=== PATIENT | female | born 1985 | race Caucasian/White ===

== ENCOUNTER 2016-06-24 07:23 | Day surgery (SDC) | payer OTHER ==
[2016-06-24] VITALS (8 sets, daily range): BP systolic 128–140; BP diastolic 68–79; PULSE 54–67; RESP 13–18; O2SAT 92–98
[~2016-06-24] VITALS: Ht 175.3 cm; Wt 133.9 kg
--- NOTE | 2016-06-24 07:01 | PCM.HPANE ---
Patient Data Surgeon Admitting Provider: Attending Provider:Wade Fried DPM Primary Care Physician:Other,Physician Other Provider:Kvng Gill Anesthesia Reason for Visit Left Ankle Syndesmosis Disruption Ht/WT & BMI Height (Feet): 5 Height (Inches): 9 Weight (Kilograms): 132.903 Body Mass Index 43.00 Allergies Coded Allergies: tramadol (Verified Allergy, Severe, Hives, 06/21/16) Past Anesthesia History Anesthesia History: Denies:: Anesthesia Reactions, Malignant Hyperthermia Diabetes History Hx Diabetes?: No MRSA MRSA: No Medications Reported Medications Ofloxacin 5 Ml Drops1-2 Drop AFFECT_EYE QID 06/21/16 Cholecalciferol (Vitamin D3) (Vitamin D)1,000 Unit Capsule2,000 Unit PO DAILY # 1 BOTTLE Ref 0 12/22/15 Georges Perox Micro/Skin Clnsr#24 (Acne Clearing System)295 Ml Combo..vpb753 Ml TP DAILY 12/22/15 Clindamycin Phosphate (Clindamycin Phosphate Topical)60 Ml Lotion1 Applic TP BID #60 ML Ref 0 1% 12/22/15 [Mirena Iud] No Conflict Check Intrauteri Daily 20MCG/24H 12/22/15 Fluticasone Propionate (Flonase Allergy Relief)50 Mcg/Actuation [place].susp9.9 Ml NS DAILY 12/22/15 Multivitamin (Multivitamins)1 Each Capsule1 Each PO DAILY 09/12/15 Montelukast (Singulair)10 Mg Neflit47 Mg PO HS Ref 0 09/12/15 Sertraline HCl (Zoloft)20 Mg/1 Ml Oral.conc50 Mg PO DAILY #1 BOTTLE Ref 0 09/12/15 Discontinued Reported Medications Amoxicillin 875 Mg Wcgkid606 Mg PO BID Ref 0 06/21/16 Hydrocodone-Acetaminophen 5-325 mg 1 Each Tablet1 Tablet PO Q4H PRN For Pain Ref 0 12/22/15 Naproxen Sodium (Aleve)220 Mg Oyhjuwz249 Mg PO BID 12/22/15 History History of ENT Problems?: Yes HEENT History: Positive for:: Hearing Problem (HX RUPT EARDRUM) Sinus Problem (SEASONAL ALLERGIES HX MAXILLARY/ETHMOIID SINUSITIS) Denies:: Cataracts Dysphagia Glaucoma (HX CONJUNCTIVITIS 05/2016) Hx of Heart Problems?: Yes Cardiovascular History: Positive for:: Irregular Heartbeat (HX BRADYCARDIA) Denies:: Heart Murmur Hypertension Hx of Respiratory Problem?: Yes Respiratory History: Positive for:: Asthma Pneumonia (X2) Denies:: Use of C-PAP Machine (SNORES) Hx Neurologic Problems?: Yes Neurological History: Positive for:: Headaches Hx of GI Problems?: Yes Gastrointestinal History: Positive for:: Heartburn Hx of Problems?: No Female Hx: Denies:: Currently Skin History: Denies:: History Skin Disorders? Pressure Ulcers Hx Musculoskeletal Problems?: Yes Musculoskeletal History: Positive for:: Musculoskeletal Trauma (S/P LT ANKLE RELOCATION/ORIF,REMOVAL OF HARDWARE) Hx of Psycho/Social Problems?: Yes Psycho Social History: Positive for:: Anxiety Hx Depression Hx Surgeries?: Yes (ORIF/RELOCATION LT ANKLE,LT ANKLE HARDWARE REMOVAL) Hx Any Other Health Problems?: Yes Other History: Positive for:: Hospitalization (LT ANKLE FX) Denies:: Cancer Endocrine Disease Thyroid Disease History Blood Transfusions: Denies:: Blood Transfuse Reaction Blood Transfusions Hx Diabetes: No Hx Alcohol Use: YesHx Substance Use: Yes (MARIJUANA) Smoking Status: Current Some Day Smoker Have You Smoked inLast 12 mo: YesApprox How Many Cigarettes/day: "OCCASIONALLY " Stop/Bang S-Snoring: Do You Snore Loudly: Yes T-Tired: feel tired, fatigued: No O-Obsered: Observed not breath: No P-Blood Pressure: treated: No B- Body Mass Index > 35 kg/m2: Yes A- Age over 50: No N- Neck Large Circumference: Yes G- Gender Male: No YENI Total Score: 3 Risk Assessment Category Category 1A: Patient has history of documented sleep apnea, and HAS NOT received any narcotic, sedative or anesthesia administration during this stay. Category 1B: Patient has history of documented sleep apnea, and HAS received any narcotic , sedative or anesthesia administration during this stay Category 2: Patient has SUSPECTED Obstructive Sleep Apnea, and HAS received any narcotic , sedative or anesthesia administration during this stay. Category 3: Patient has SUSPECTED Obstructive Sleep Apnea and HAS NOT received narcotic, sedative or anesthesia administration during this stay. Category 4: Outpatient in Procedural Areas with known sleep apnea or who screen positive for High Risk via the STOP/BANG questionnaire. Exam Exam General Appearance: Alert, Oriented X3, Cooperative HEENT/AIRWAY: MP 2, Neck Movement (from), Mouth Opening (wnl) Heart: Exam Unremarkable Plan Impression Patient chart reviewed, patient interviewed and anesthestic plan with risks, benefits, and alternatives discussed, and informed consent obtained. NPO Status: MN ASA Physical Status: ASA3 Severe Disease Anesthetic Plan: GA Bene/Risks/Altern/Consents: Yes HP Complete Prior to Induction: Yes Other Scope patch requested and provided. Patient gets post op N/V every time. Offered SAB and patient requests GA. Isak Horvath MD Jun 24, 2016 07:01
[~2016-06-24 07:23] MED LIST: AMOX875T2 PO; CHOL100045 PO; CLIN60LO2 TP; CeFAZolin Inj 3 GM in IV Premix 1 EACH IV SCH; FLUT9.9S NS; MIRENA IUD INTRAUTERI; MONT10TA20 PO; MULT1CAP33 PO; OFLO5DRO9 AFFECT_EYE; SERT20OR PO; [UNRECOGNIZED DRUG - CODE] TP
[2016-06-24] MEDS ORDERED: Dexamethasone 4 mg/mL Inj ONE (07:24)
[2016-06-24] MEDS ORDERED: Ondansetron 2 mg/mL 2 mL Inj ONE (07:24)
[2016-06-24] MEDS ORDERED: Glycopyrrolate 0.2 MG/ML 1mL Inj ONE (07:24)
[2016-06-24] MEDS ORDERED: fentaNYL-PF 50 mCg/mL 2 mL Inj ONE (07:24)
[2016-06-24] MEDS ORDERED: Propofol 10,000 mCg/mL 20 mL Inj ONE (07:24)
[2016-06-24] MEDS: Lactated Ringer's 1,000 ML IV SCH ×2 (07:30→10:40)
[2016-06-24] MEDS ORDERED: fentaNYL-PF 50 mCg/mL 2 mL Inj IVPUSH PRN ×2 (08:15→10:35)
[2016-06-24] MEDS ORDERED: LORazepam 1 mg Tablet PO PRN (08:15)
[2016-06-24] MEDS ORDERED: CeFAZolin Inj 2 GM in IV Premix 1 EACH IV ONE (09:00)
[2016-06-24] MEDS ORDERED: Lactated Ringer's 1,000 ML IV SCH (10:33)
[2016-06-24] MEDS ORDERED: Lactated Ringer's 500 ML IV PRN (10:33)
[2016-06-24] MEDS ORDERED: EPHEDrine Sulfate 50 mg/mL Inj IVPUSH PRN (10:35)
[2016-06-24] MEDS ORDERED: Phenylephrine 10,000 mCg/mL Inj IVPUSH PRN (10:35)
[2016-06-24] MEDS ORDERED: EPHEDrine Sulfate 50 mg/mL Inj IM PRN (10:35)
[2016-06-24] MEDS ORDERED: Atropine 0.4 mg/mL Inj IVPUSH PRN (10:35)
[2016-06-24] MEDS ORDERED: HYDROmorphone 1 mg/mL Inj IVPUSH PRN (10:35)
[2016-06-24] MEDS ORDERED: hydrOXYzine Inj 50 MG/1 mL SDV IM PRN (10:35)
[2016-06-24] MEDS ORDERED: Labetalol 5 mg/mL 4 mL Inj IV PRN (10:35)
[2016-06-24] MEDS ORDERED: Ondansetron 2 mg/mL 2 mL Inj IVPUSH PRN (10:35)
[2016-06-24] MEDS ORDERED: Dexamethasone 4 mg/mL Inj IVPUSH PRN (10:35)
[2016-06-24] MEDS ORDERED: hydrALAZINE 20 mg/mL Inj IVPUSH PRN (10:35)
[2016-06-24] MEDS ORDERED: Bupivacaine-MPF 0.5% W/EPI 30 mL Inj INFILTRATE ONE (10:39)
--- NOTE | 2016-06-24 13:42 | PCM.ANEP1 ---
Post Anesthesia Phase 1 PACU Phase 1 Assessment Vital Signs Vital Signs Date Time Temp Pulse Resp B/P Pulse Ox O2 Delivery O2 Flow Rate FiO2 06/24/16 08:23 36.0 55 18 139/76 95 Room Air Anesthetic Administered: GA Level of Alertness: Awake, talking WELCH's with Equal Strength: Yes Pain: Yes Nausea or Vomiting: No Oxygen Delivery: Room Air Lungs: Normal Air Movement Isak Horvath MD Jun 24, 2016 13:42
[2016-06-24] MEDS ORDERED: Acetaminophen IV 1,000 MG in IV Premix 1 EACH IV ONE (13:45)
[2016-06-24] MEDS ORDERED: oxyCODONE-Acetamin 5-325 mg Tablet PO PRN (13:45)
--- NOTE | 2016-06-24 13:55 | PCM.PODPO ---
Podiatry Operative Report Date of Service: Jun 24, 2016 Date of Service Jun 24, 2016 Pre Operative Diagnosis Syndesmosis disruption left ankle Retained hardware left ankle Post Operative Diagnosis Same as preoperative diagnoses Procedure Removal hardware left ankle Left ankle arthroscopy with extensive soft tissue debridement Open reduction internal fixation of the left ankle syndesmosis Surgeon Surgeon: Wade Fried DPM Assistants: None Indication for Procedure Severe pain left ankle with chronic syndesmosis disruption Findings Severe fibrous scar tissue within the medial gutter of the left ankle preventing left ankle anatomic reduction. Severe soft tissue disease of the left ankle. Details of Procedure Patient was identified in the preoperative holding area and preoperative coronary disease and allergies were identified and thoroughly discussed. The patient was transported into the operating room and placed on the operating room table in the normal supine position. The patient was then prepped and draped in the normal aseptic technique. Attention was first paid to the anterior medial aspect of the left ankle. A spinal needle was inserted medial to the tibialis anterior tendon taking care to avoid local neurovascular structures. The ankle joint was then infiltrated with a large amount of normal saline. A stab incision was then made with a #11 blade and a hemostat was inserted to access the ankle joint. An obturator and cannula was then inserted through the medial access portal. The camera was then inserted to the medial ankle and the ankle joint was identified through direct visualization on arthroscopy. A medial portal was accessed in a similar fashion using direct visualization. Inspection of the left ankle joint revealed a large amount of synovitis and soft tissue disease within the articular surface of the ankle joint as well as within the lateral and medial gutter. A 2.5 mm aggressive cutting shaver was then utilized to resect as much soft tissue disease as possible from the lateral gutter, intra-articular ankle surface taking care not to damage any articular cartilage and from within the medial gutter as well. During the arthroscopy was noted that there was a large buildup of fibrous scar tissue within the anterior inferior portion of the medial ankle gutter which was not easily removable with a 2.5 mm shaver tool. The ankle joint was copiously flushed with large amounts of normal saline. Attention was then paid to the lateral aspect of the left ankle he linear incision approximately 5 cm in length was made over the posterior lateral aspect of the left distal fibula. Most initially her skin no subcutaneous or lesser structures were identified and retracted out of the surgical field. Sharp dissection was carried straight down to bone with a fresh #15 blade. Deep tissue was reflected both anteriorly and posteriorly off the distal fibula to reveal the entirety of the distal fibula. The posteriorly placed tight rope was identified and the lateral button was excised sharply with a #15 blade. A stab incision was made overlying the medial malleolus and the location of the lateral suture button which was then also sharply removed all associated suture material was also removed with the tight rope button. A muñoz periosteal elevator was then utilized to dissect proximally through the lateral incision to identify the distal aspect of the one third tubular plate. Distal screws were removed utilizing a 3.5 mm Synthes screwdriver. A superior incision was then made approximately 4 cm in length and blunt dissection was carried down to deep fascia with a Metzenbaum scissor the peroneal muscle bellies were retracted posteriorly a 15 blade was then utilized to sharply dissect through deep fascia exposing the proximal aspect of the internal fixation. All associated proximal screws were removed. The plate was then loosened with a small osteotome and removed through the distal incision. Manual reduction of the left ankle was then attempted and was noted to still be inhibited by substance within the medial gutter. The medial ankle portal was then extended and additional 2 cm inferiorly. Blunt dissection was carried down through subcutaneous tissue with a Metzenbaum scissor to the level of joint capsule. A fresh #15 blade was then utilized to incise through the joint capsule exposing the medial gutter and medial ankle. A rongeur was then utilized to remove remaining fibrous scar tissue from the medial gutter taking care not to damage any anterior aspects of the deltoid ligaments. Care was also taken to avoid any damage to the articular surface of the talus or tibia. Following removal of all fibrous tissue from within the medial gutter this was wound was then copiously flushed with large amounts of normal saline. Manual reduction of the ankle joint was again performed and direct visualization of the medial gutter confirmed anatomic reduction of the syndesmosis. A large syndesmotic bone clamp was then utilized to maintain reduction and a 2 hole plate was inserted over the lateral aspect of the fibula with 2 Arthrex tight ropes placed across the syndesmosis in the normal surgical fashion. The ankle was then stressed utilizing fluoroscopy and no widening of the ankle mortise was noted. All wounds were again copiously flushed with large amounts of normal saline. Deep closure of all open incisions was performed utilizing number 3. 0 Vicryl in a layered type fashion. Skin closure was performed utilizing number 3. 0 Prolene. All wounds were dressed with Adaptic 4 x 4 gauze Kerlix and the patient was placed into a mildly compressive Babcock compression dressing. No complications occurred during this procedure. The patient was awoken by anesthesia and transported to the operating room. Grafts, Implants: Implants-See Implant Record Complications There were no periprocedural complications identified. Condition Stable Anesthetic Administered: GA Catheters: None Output, Estimated Blood Loss: 50 Blood Admin during surgery: No Surgical Cast or Splint: Well-padded Short Leg Splint Surgical Specimen Removed: No Specimen sent to Pathology: No Post Operative Plan Ice and elevate left lower extremity Nonweightbearing left lower extremity Discharge to home when stable Keep dressing clean dry and intact Contact our office with any questions or concerns regarding care Pain medication as needed for severe pain only Wade Fried DPM Jun 24, 2016 13:55
--- NOTE | 2016-06-24 14:39 | PCM.ANEP2 ---
Post Anesthesia Evaluation ASA/CMS Post Anesthesia VS in Patient's Normal Range?: Yes Resp Stable; Airway Patent?: Yes CV Function & Hydration Stable: Yes Mental Status Recovered?: Yes Pain control Satisfactory?: Yes N/V Control Satisfactory?: Yes Isak Horvath MD Jun 24, 2016 14:39
== END 2016-06-24 23:59 | disposition home or self-care (01) ==
LOC: SAS 07:23
PROVIDERS: ATTEND Podiatrist Foot & Ankle Surgery
DX: S93.432S Sprain of tibiofibular ligament of left ankle, sequela (principal); T84.84XA Pain due to internal orthopedic prosthetic devices, implants and grafts, initial encounter; L90.5 Scar conditions and fibrosis of skin; F32.9 Major depressive disorder, single episode, unspecified; F41.9 Anxiety disorder, unspecified; J45.909 Unspecified asthma, uncomplicated; E66.3 Overweight; F17.210 Nicotine dependence, cigarettes, uncomplicated; S93.05XS Dislocation of left ankle joint, sequela; W19.XXXS Unspecified fall, sequela; Y92.9 Unspecified place or not applicable; Z68.41 Body mass index [BMI] 40.0-44.9, adult; Z53.33 Arthroscopic surgical procedure converted to open procedure
CPT/HCPCS: 27829; 76001; C1713; J0131; J0171; J0690; J1100; J1170; J2175; J2250; J2405; J3010; J3410; J7120